=== PATIENT | male | born 1955 | race African-American/Black ===

== ENCOUNTER 2018-06-19 07:53 | Observation (INO) ==
[2018-06-19 08:01] VITALS: TEMP 97.8
[2018-06-19 08:14] VITALS: BP 145/80; RESP 16; O2SAT 98
[2018-06-19 08:17] VITALS: PULSE 81
[2018-06-19] MEDS ORDERED: Aluminum/Magnesium/Simethacone Susp 30 ML UDC PO ONE (08:30)
[2018-06-19 08:37] LABS: Baso # (Auto) 0.1 th/mm3 (0.0-0.2); Baso % (Auto) 1.2 % (0.0-2.0); Eos # (Auto) 0.4 th/mm3 (0.0-0.4); Eos % (Auto) 4.8 % (0.0-4.0); Hematocrit 35.2 % (39.0-51.0); Lymph # (Auto) 2.7 th/mm3 (1.0-4.8); Lymph % (Auto) 36.3 % (9.0-44.0); Mean Corpuscular HGB Conc 34.1 % (32.0-36.0); Mean Corpuscular Hemoglobin 30.2 pg (27.0-34.0); Mean Corpuscular Volume 88.5 fL (80.0-100.0); Mean Platelet Volume 6.4 fL (7.0-11.0); Mono # (Auto) 0.6 th/mm3 (0.0-0.9); Mono % (Auto) 7.9 % (0.0-8.0); Neut # (Auto) 3.8 th/mm3 (1.8-7.7); Neut % (Auto) 49.8 % (16.0-70.0); Platelet Count 287 th/mm3 (150-450); Red Blood Count 3.97 mil/mm3 (4.50-5.90); Red Cell Distribution Width 15.4 % (11.6-17.2); White Blood Count 7.6 th/mm3 (4.0-11.0)
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
[2018-06-19 09:19] LABS: Alanine Aminotransferase 23 U/L (12-78); Albumin 3.9 g/dL (3.4-5.0); Anion Gap 7 meq/L (5-15); Aspartate Aminotransferase 20 U/L (15-37); Blood Urea Nitrogen 14 mg/dL (7-18); Calcium 8.8 mg/dL (8.5-10.1); Carbon Dioxide 26.3 meq/L (21.0-32.0); Chloride 107 meq/L (98-107); Glomerular Filtration Rate 79 mL/min (>89); Glucose,Random 100 mg/dL (74-106); Lipase 217 U/L (73-393); Potassium 3.7 meq/L (3.5-5.1); Sodium 140 meq/L (136-145)
[2018-06-19 09:24] LABS: Alkaline Phosphatase 82 U/L (45-117); Creatine Kinase 251 U/L (39-308); Total Protein 7.5 g/dL (6.4-8.2)
[2018-06-19 09:37] LABS: Creatine Kinase MB 1.2 ng/mL (0.5-3.6)
--- NOTE | 2018-06-19 12:54 | P.HPCA ---
History of Present Illness Primary Care Physician: UNKNOWN Chief Complaint: Chest pain History of Present Illness: This is a 63-year-old male that presents to ED via private vehicle with complaint of having a soreness just left of the center of his chest that began last evening and lasted all night and is still there. States is worsened with certain type of twisting movements of his torso. Cannot recall being short of breath, nauseous, diaphoretic. Voices compliance with medications of hypertension and GERD. Cannot really recall ever having a stress test or heart catheterization. States he has been a lifetime non-smoker of tobacco products but will smoke marijuana occasionally and snorted heroin 2 nights ago. History of hypertension, GERD, and chronic left hip pain. Denies family history of heart disease. States he has never smoked cigarettes. States he was clean for 25 years of heroin but did snort it 2 days ago. He does smoke marijuana occasionally. - Diagnosis (1) Atypical chest pain (2) Hypertension (3) GERD (gastroesophageal reflux disease) (4) Heroin abuse Review of Systems General: Patient denies fevers, chills, and recent travel. HEENT: Patient denies headache, sore throat, difficulty swallowing. Cardiovascular: Has the chest discomfort as mentioned above. Denies sensation of heart beating rapidly or irregularly. No syncope. Denies diaphoresis. Respiratory: Denies shortness of breath or inspirational chest discomfort. Denies coughing wheezing or hemoptysis. GI: Patient denies nausea, vomiting, diarrhea, abdominal pain, bloody stools. Musculoskeletal: Chronic left hip pain. Patient denies edema. Denies calf pain or edema. Neurovascular: Patient denies numbness, tingling, weakness in extremities. Denies headache. Endocrine: Denies polyuria and polydipsia. Hematologic: Denies easy bruising. Skin: Denies rash or itching. PMFSH - History History Provided By: Patient - Medical History Medical History: Medical History (Last Reviewed 06/19/18 @ 08:35 by Patrick Lund MD) GERD (gastroesophageal reflux disease) Hypertension - Tobacco History Smoking Status: Never smoker - Alcohol History How Often Do You Have a Drink Containing Alcohol: 4 or more times a week - Substance Use History Substance History: No History of Abuse - Travel History Recent Travel in the [place] Within the Last 8 Weeks: No Recent Travel Out of the Country Within the Last 8 Weeks: No - Immunization History Tetanus Immunization: <5 Years Medications and Allergies Active Medications: Active Medications Sodium Chloride (Ns Flush) 2 ml IV.FLUSH UNSCH PRN PRN Reason: FLUSH AFTER USING IV ACCESS Allergies Allergy/AdvReac Type Severity Reaction Status Date / Time aspirin Allergy Mild rash Verified 06/19/18 08:05 ibuprofen Allergy Unknown Rash Verified 06/19/18 08:05 Home Medications Medication Instructions Recorded Confirmed Type amlodipine 10 mg PO DAILY 06/19/18 06/19/18 History atenolol 50 mg PO DAILY 06/19/18 06/19/18 History omeprazole 20 mg PO DAILY 06/19/18 06/19/18 History oxycodone-acetaminophen [Percocet] 1 tab PO Q4-6H PRN 06/19/18 06/19/18 History Exam Vital signs: Vital Signs 06/19/18 07:55 06/19/18 08:05 06/19/18 08:15 Temperature 97.8 F Pulse Rate 94 H 83 Respiratory Rate 20 16 Blood Pressure 155/78 H 145/80 H Pulse Oximetry 99 98 98 06/19/18 08:16 Temperature Pulse Rate 81 Respiratory Rate Blood Pressure Pulse Oximetry Intake & Output 06/18/18 06/19/18 06/19/18 18:59 06:59 18:59 Weight 90.718 kg Narrative: GENERAL: This is a well-nourished, well-developed patient, in no apparent distress. Patient speaks in clear complete sentences. Patient is pleasant. HEENT: Head is atraumatic and normocephalic. Neck is supple without lymphadenopathy and trachea is midline. No JVD or carotid bruits. CARDIOVASCULAR: Regular rate and rhythm without murmurs, gallops, or rubs. RESPIRATORY: Clear to auscultation. Breath sounds equal bilaterally. No wheezes , rales, or rhonchi. Chest wall is tender when palpating area when he is doing a twisting movement of the torso. No use of accessory muscles. GASTROINTESTINAL: Abdomen is nontender, nondistended. Abdomen soft. No obvious pulsatile mass or bruit. No CVA tenderness. Strong femoral pulses bilaterally. Normal bowel sounds in all quadrants. MUSCULOSKELETAL: Patient is moving upper and lower extremities freely. No calf tenderness or edema, no Homans sign. Strong pulses in upper and lower extremities. NEUROLOGICAL: Patient is alert and oriented. Cranial nerves 2-12 are grossly intact. No focal deficits and speech is clear. SKIN: No rash and turgor is normal. Results 06/19/18 08:15 06/19/18 08:15 Cardiac Enzymes 06/19/18 Range/Units 08:15 AST 20 (15-37) U/L CK-MB (CK-2) 1.2 (0.5-3.6) ng/mL Troponin I Less than 0.02 L (0.02-0.05) ng/mL CBC 06/19/18 Range/Units 08:15 WBC 7.6 (4.0-11.0) th/mm3 RBC 3.97 L (4.50-5.90) mil/mm3 Hgb 12.0 L (13.0-17.0) gm/dL Hct 35.2 L (39.0-51.0) % Plt Count 287 (150-450) th/mm3 Neut # (Auto) 3.8 (1.8-7.7) th/mm3 Lymph # (Auto) 2.7 (1.0-4.8) th/mm3 [place] # (Auto) 0.6 (0.0-0.9) th/mm3 Eos # (Auto) 0.4 (0.0-0.4) th/mm3 Baso # (Auto) 0.1 (0.0-0.2) th/mm3 Comprehensive Metabolic Panel 06/19/18 Range/Units 08:15 Sodium 140 (136-145) meq/L Potassium 3.7 (3.5-5.1) meq/L Chloride 107 (98-107) meq/L Carbon Dioxide 26.3 (21.0-32.0) meq/L BUN 14 (7-18) mg/dL Creatinine 1.13 (0.60-1.30) mg/dL Calcium 8.8 (8.5-10.1) mg/dL AST 20 (15-37) U/L ALT 23 (12-78) U/L Alkaline Phosphatase 82 (45-117) U/L Total Protein 7.5 (6.4-8.2) g/dL Albumin 3.9 (3.4-5.0) g/dL Intake and Output 06/18/18 06/19/18 06/19/18 22:59 06:59 14:59 Other: Weight 90.718 kg Patient Weight 06/20/18 06:59 Weight 90.718 kg - Imaging and Cardiology Imaging: Impressions Chest X-Ray 06/19/18 08:10 CONCLUSION: Negative for acute process EKG interpretations - EKG EKG shows: sinus rhythm (Initial EKG is sinus rhythm without significant ST segment depressions or elevations.) Caprini VTE Risk Assessment Caprini VTE Risk Assessment: Moderate/High Risk (score >= 2) Caprini Risk Assessment Model: Point Value = 1 Point Value = 2 Point Value = 3 Point Value = 5 Age 41-60 Minor surgery BMI > 25 kg/m2 Swollen legs Varicose veins or History of unexplained or recurrent spontaneous Oral contraceptives or hormone replacement Sepsis (< 1 month) Serious lung disease, including pneumonia (< 1 month) Abnormal pulmonary function Acute myocardial infarction Congestive heart failure (< 1 month) History of inflammatory bowel disease Medical patient at bed rest Age 61-74 Arthroscopic surgery Major open surgery (> 45 min) Laparoscopic surgery (> 45 min) Malignancy Confined to bed (> 72 hours) Immobilizing plaster cast Central venous access Age >= 75 History of VTE Family history of VTE Factor V Leiden Prothrombin [id number] Lupus anticoagulant Anticardiolipin antibodies Elevated serum homocysteine Heparin-induced thrombocytopenia Other congenital or acquired thrombophilia Stroke (< 1 month) Elective arthroplasty Hip, pelvis, or leg fracture Acute spinal cord injury (< 1 month) Prophylaxis Regimen: Total Risk Factor Score Risk Level Prophylaxis Regimen 0-1 Low Early ambulation 2 Moderate Order ONE of the following: *Sequential Compression Device (SCD) *Heparin 5000 units SQ BID 3-4 Higher Order ONE of the following medications: *Heparin 5000 units SQ TID *Enoxaparin/Lovenox 40 mg SQ daily (WT < 150 kg, CrCl > 30 mL/min) *Enoxaparin/Lovenox 30 mg SQ daily (WT < 150 kg, CrCl > 10-29 mL/min) *Enoxaparin/Lovenox 30 mg SQ BID (WT < 150 kg, CrCl > 30 mL/min) AND/OR *Sequential Compression Device (SCD) 5 or more Highest Order ONE of the following medications: *Heparin 5000 units SQ TID (Preferred with Epidurals) *Enoxaparin/Lovenox 40 mg SQ daily (WT < 150 kg, CrCl > 30 mL/min) *Enoxaparin/Lovenox 30 mg SQ daily (WT < 150 kg, CrCl > 10-29 mL/min) *Enoxaparin/Lovenox 30 mg SQ BID (WT < 150 kg, CrCl > 30 mL/min) AND *Sequential Compression Device (SCD) Assessment and Plan - Assessment (1) Atypical chest pain Code(s): R07.89 - Other chest pain Status: Acute (2) Hypertension Code(s): I10 - Essential (primary) hypertension Status: Acute (3) GERD (gastroesophageal reflux disease) Code(s): K21.9 - Gastro-esophageal reflux disease without esophagitis Status: Acute (4) Heroin abuse Code(s): F11.10 - Opioid abuse, uncomplicated Status: Acute - Plan * Atypical chest pain: Patient's first troponin is normal and EKG as well while having chest discomfort for greater than 12 hours. He was seen by Dr. Zelaya of cardiology and chest pain center and had a nonischemic Cristóbal protocol ETT. At this time will be discharged home with instructions to follow-up with PCP. Return to ED for interval issues. * Hypertension: Continue medication. * GERD: Continue medication. * Heroin abuse: He has been advised never to use heroin again. Patient is stable at this time. He is agreeable to this plan.
--- NOTE | 2018-06-19 12:59 | TR ---
Date Performed: 06/19/2018 Time Performed: 12:36:34 DOCTOR: Aaron Zelaya DRUG LIST: CLINICAL HISTORY: REASON FOR TEST: REASON FOR ENDING: OBSERVATION: CONCLUSION: MAG PROTOCOL. NO CP. TEST STOPPED AFTER EXCEEDING GOAL HR AND LEG FATIGUE.Maximum DQ=968 % Max HR Achieved=89.0% Maximum BV=633/78 Total Exercise Time=3:47 COMMENTS: Conclusion: Normal treadmill exercise. No evidence of ischemia.
--- NOTE | 2018-06-19 13:30 | ECG ---
Date Performed: 06/19/2018 Time Performed: 08:05:33 PTAGE: 63 years EKG: Sinus rhythm NORMAL ECG PREVIOUS TRACING : 09/03/2013 08.42 DOCTOR: Rj Alanis Interpretating Date/Time 06/19/2018 13:27:32
== END 2018-06-19 13:10 | disposition home or self-care (01) ==
LOC: NEDA 07:53 → NEPC 07:53 → NEDA 13:10